=== PATIENT | female | born 1950 | race Caucasian/White ===

== ENCOUNTER 2022-08-11 19:47 | Emergency (ER) | payer OTHER, MEDICAID ==
[~2022-08-11] VITALS: Ht 157.5 cm; Wt 66.7 kg
[~2022-08-11 19:47] MED LIST: ASPI81EC98 PO; ATOR20TA PO; MECL-303 PO; ONDA4TAB PO; ONDA8TAB87 PO; PROC-62 PO; SERT100T PO; SYN.075 PO
[2022-08-11 20:53] VITALS: BP 154/68
[2022-08-11] MEDS ORDERED: NACL 0.9% 1,000 ML IV ONE (22:05)
[2022-08-11] MEDS ORDERED: ONDANSETRON 4 MG/2 ML VIAL IVP ONE (22:05)
--- NOTE | 2022-08-11 22:15 | NUR ---
PT TAKEN TO BED 11
--- NOTE | 2022-08-11 23:46 | NUR ---
Dr. Lee examining patient.
[2022-08-11 23:57] VITALS: BP 128/59
[2022-08-11] MEDS ORDERED: IBUP-2213 PO (23:59)
[2022-08-11] MEDS ORDERED: PHEN-1877 PO (23:59)
[2022-08-11] MEDS ORDERED: ONDA8TAB87 PO (23:59)
[2022-08-11] MEDS ORDERED: CIPR500T4 PO (23:59)
[2022-08-12] MEDS ORDERED: ONDANSETRON 4 MG ODT PO ONE
[2022-08-12] MEDS ORDERED: IBUPROFEN 600 MG TAB PO ONE
--- NOTE | 2022-08-12 00:07 | NUR ---
Per ron Oliver to d/c with fever, pt already premedicated. pt d/c with VSS besides the fever. d/c education given. opportunity to ask questions given and answered. rx of pyridium and cipro, motrin and zofran given.
== END 2022-08-12 00:07 | disposition home or self-care (01) ==
LOC: MED 19:47
DX: N39.0 Urinary tract infection, site not specified (principal); R11.2 Nausea with vomiting, unspecified; R50.9 Fever, unspecified; R51.9 Headache, unspecified; E11.9 Type 2 diabetes mellitus without complications; I10 Essential (primary) hypertension; Z87.448 Personal history of other diseases of urinary system; Z85.038 Personal history of other malignant neoplasm of large intestine; Z98.890 Other specified postprocedural states; Z79.899 Other long term (current) drug therapy; Z79.1 Long term (current) use of non-steroidal anti-inflammatories (NSAID); Z79.2 Long term (current) use of antibiotics; Z79.82 Long term (current) use of aspirin
CPT/HCPCS: 87086; 99283; Q0162

== ENCOUNTER 2023-07-26 07:29 | Emergency (ER) | payer OTHER, MEDICAID ==
[~2023-07-26] VITALS: Ht 162.6 cm; Wt 68.9 kg
[~2023-07-26 07:29] MED LIST changes: +CIPR500T4 PO; +IBUP-2213 PO; +PHEN-1877 PO; -PROC-62 PO; +PROC-87 PO
[2023-07-26 07:33] VITALS: BP 151/70; PULSE 72; RESP 16; TEMP 98.7; O2SAT 99
[2023-07-26] MEDS ORDERED: KETOROLAC 60 MG/2 ML VIAL IM ONE (08:20)
[2023-07-26] MEDS ORDERED: ONDA8TAB87 PO (08:30)
[2023-07-26] MEDS ORDERED: CIPR500T4 PO (08:30)
[2023-07-26] MEDS ORDERED: IBUP-2213 PO (08:30)
[2023-07-26] MEDS ORDERED: LOPE-289 PO (08:30)
== END 2023-07-26 09:05 | disposition home or self-care (01) ==
LOC: MED 07:29
DX: R10.9 Unspecified abdominal pain (principal); R19.7 Diarrhea, unspecified; R53.83 Other fatigue; R11.0 Nausea; E11.9 Type 2 diabetes mellitus without complications; I10 Essential (primary) hypertension; Z98.890 Other specified postprocedural states; Z79.899 Other long term (current) drug therapy
CPT/HCPCS: 81002; 96372; 99283; J1885